=== PATIENT | female | born 1945 | race Asian ===

== ENCOUNTER 2018-01-10 11:51 | Outpatient (CLI) | payer MEDICARE, BC ==
[2018-01-10 12:31] LABS: BASOPHILS % (AUTO) 0.5 % (0-1); EOSINOPHILS # (AUTO) 0.2 X10'3 (0-0.9); EOSINOPHILS % (AUTO) 3.1 % (0-6); HEMATOCRIT 39.3 % (35.0-45.0); HEMOGLOBIN 13.6 g/dl (12.0-16.0); LYMPHOCYTES # (AUTO) 2.1 X10'3 (1.1-4.8); LYMPHOCYTES % (AUTO) 32.1 % (21-51); MEAN CORPUSCULAR HEMOGLOBIN 31.7 PG (27.0-31.0); MEAN CORPUSCULAR HGB CONC 34.7 % (33.0-36.5); MEAN CORPUSCULAR VOLUME 91.5 FL (78-98); MEAN PLATELET VOLUME 6.5 FL (7.4-10.4); MONOCYTES # (AUTO) 0.4 X10'3 (0-0.9); NEUTROPHILS # (AUTO) 3.8 X10'3 (1.8-7.7); NEUTROPHILS % (AUTO) 58.3 % (42-75); PLATELET COUNT 306 X10'3 (140-440); RED CELL DISTRIBUTION WIDTH 12.6 % (11.5-14.5); WHITE BLOOD COUNT 6.5 X10'3 (4.5-11.0)
[2018-01-10 12:34] LABS: ALBUMIN 3.8 G/DL (3.4-5.0); ANION GAP 8 (8-16); BLOOD UREA NITROGEN 21 MG/DL (7-18); BUN/CREATININE RATIO 23.1 (6.6-38.0); CHLORIDE 105 MMOL/L (99-107); CREATININE 0.91 MG/DL (0.40-0.90); GLUCOSE 101 MG/DL (70-104); PARTIAL THROMBOPLASTIN TIME 28 SECONDS (22-32); POTASSIUM 3.8 MMOL/L (3.5-5.1); PROTHROMBIN TIME 10.1 SECONDS (9.0-12.0); SODIUM 145 MMOL/L (135-145); TOTAL CARBON DIOXIDE 32.1 MMOL/L (24-32); eGFR 61 ML/MIN
== END 2018-01-10 23:59 | disposition home or self-care (01) ==
LOC: LAB 11:51 → EDSTATUS 01-15 18:30
PROVIDERS: ATTEND Internal Medicine Interventional Cardiology
DX: Z01.810 Encounter for preprocedural cardiovascular examination (principal); R07.2 Precordial pain; K21.9 Gastro-esophageal reflux disease without esophagitis
CPT/HCPCS: 36415; 80048; 85025; 85610; 85730

== ENCOUNTER 2018-02-07 13:45 | Day surgery (SDC) | payer MEDICARE, BC ==
[2018-02-02 12:11] LABS: BASOPHILS % (AUTO) 0.5 % (0-1); EOSINOPHILS # (AUTO) 0.2 X10'3 (0-0.9); EOSINOPHILS % (AUTO) 2.9 % (0-6); HEMATOCRIT 40.3 % (35.0-45.0); HEMOGLOBIN 13.9 g/dl (12.0-16.0); LYMPHOCYTES # (AUTO) 2.2 X10'3 (1.1-4.8); MEAN CORPUSCULAR HEMOGLOBIN 31.8 PG (27.0-31.0); MEAN CORPUSCULAR HGB CONC 34.4 % (33.0-36.5); MEAN CORPUSCULAR VOLUME 92.4 FL (78-98); MEAN PLATELET VOLUME 6.2 FL (7.4-10.4); MONOCYTES # (AUTO) 0.4 X10'3 (0-0.9); MONOCYTES % (AUTO) 5.6 % (2-12); NEUTROPHILS # (AUTO) 4.6 X10'3 (1.8-7.7); PLATELET COUNT 369 X10'3 (140-440); RED BLOOD COUNT 4.36 X10'6 (4.20-5.60); RED CELL DISTRIBUTION WIDTH 12.9 % (11.5-14.5); WHITE BLOOD COUNT 7.5 X10'3 (4.5-11.0)
[2018-02-02 12:20] LABS: ALBUMIN 3.9 G/DL (3.4-5.0); ANION GAP 4 (8-16); BLOOD UREA NITROGEN 20 MG/DL (7-18); BUN/CREATININE RATIO 20.2 (6.6-38.0); CALCIUM 9.4 MG/DL (8.5-10.1); CHLORIDE 103 MMOL/L (99-107); CREATININE 0.99 MG/DL (0.40-0.90); GLUCOSE 118 MG/DL (70-104); PARTIAL THROMBOPLASTIN TIME 28 SECONDS (22-32); POTASSIUM 3.8 MMOL/L (3.5-5.1); PROTHROMBIN TIME 9.9 SECONDS (9.0-12.0); SODIUM 141 MMOL/L (135-145); TOTAL CARBON DIOXIDE 33.8 MMOL/L (24-32); eGFR 55 ML/MIN
[~2018-02-07] VITALS: Ht 147.3 cm; Wt 50.4 kg
[2018-02-07] VITALS (8 sets, daily range): BP systolic 120–155; BP diastolic 64–97
[2018-02-07] MEDS ORDERED: MULT-955 PO (14:09)
[2018-02-07] MEDS ORDERED: HYDR25TA4 PO (14:09)
[2018-02-07] MEDS ORDERED: FAMO-128 PO (14:09)
[2018-02-07] MEDS ORDERED: normal saline 1000ml 1,000 ML IV SCH (14:10)
[2018-02-07] MEDS ORDERED: LIDOcaine/PRILOcaine 5gm cream TP ONE (14:10)
[2018-02-07] MEDS ORDERED: diphenhydrAMINE 25mg capsule PO PRN (14:10)
[2018-02-07] MEDS ORDERED: LORazepam 0.5 MG tablet PO PRN (14:10)
[2018-02-07] MEDS ORDERED: nitroGLYCERIN-Tridil 50MG/D5W 250 ML IV ONE (16:34)
[2018-02-07] MEDS ORDERED: verapamil 2.5 mg/ml inj IV ONE (16:34)
[2018-02-07] MEDS ORDERED: midazolam 2 mg/2 ml injection ONE (16:34)
[2018-02-07] MEDS ORDERED: fentaNYL/PF 50MCG/1 ML 2ML syringe ONE (16:35)
[2018-02-07] MEDS ORDERED: heparin 1,000unit/ml 10ml vial 10 ML ONE (16:35)
[2018-02-07] MEDS ORDERED: iohexol 350MG/ML 100ml bottle IV ONE (16:35)
[2018-02-07] MEDS ORDERED: LIDOcaine 1% 30ml preserv. free vial ONE (16:35)
[2018-02-07] MEDS ORDERED: OXAZEpam 15mg capsule PO PRN (17:45)
[2018-02-07] MEDS ORDERED: proCHLORperazine 10 MG/2 ml inj IV PRN (17:45)
[2018-02-07] MEDS ORDERED: ondansetron/PF 4mg/2ml inj IV PRN (17:45)
[2018-02-16] MEDS ORDERED: HYDR-4383 PO (07:07)
== END 2018-02-07 19:30 | disposition home or self-care (01) ==
LOC: SSTAY O 13:45
PROVIDERS: ATTEND Internal Medicine Interventional Cardiology
DX: I25.118 Atherosclerotic heart disease of native coronary artery with other forms of angina pectoris (principal); I10 Essential (primary) hypertension; E78.5 Hyperlipidemia, unspecified; K21.9 Gastro-esophageal reflux disease without esophagitis; M19.90 Unspecified osteoarthritis, unspecified site; E11.9 Type 2 diabetes mellitus without complications; I45.81 Long QT syndrome; Z79.01 Long term (current) use of anticoagulants; Z88.6 Allergy status to analgesic agent; Z91.018 Allergy to other foods; Z79.82 Long term (current) use of aspirin; Z79.891 Long term (current) use of opiate analgesic; Z90.710 Acquired absence of both cervix and uterus; Z79.899 Other long term (current) drug therapy; Z98.890 Other specified postprocedural states; Z88.8 Allergy status to other drugs, medicaments and biological substances
CPT/HCPCS: 36415; 80048; 85025; 85610; 85730; 93005; 93458; 99152; A6257; A6258; A6402; C1769; J1644; J2250; J3010; J3490; J7030; Q0163; Q9967; A4620

== ENCOUNTER 2018-02-12 05:30 | Inpatient (IN) | payer MEDICARE, BC ==
[2018-02-09 13:44] LABS: BASOPHILS % (AUTO) 0.4 % (0-1); EOSINOPHILS # (AUTO) 0.1 X10'3 (0-0.9); EOSINOPHILS % (AUTO) 1.7 % (0-6); LYMPHOCYTES # (AUTO) 1.9 X10'3 (1.1-4.8); LYMPHOCYTES % (AUTO) 23.7 % (21-51); MEAN CORPUSCULAR HEMOGLOBIN 31.8 PG (27.0-31.0); MEAN CORPUSCULAR HGB CONC 34.4 % (33.0-36.5); MEAN CORPUSCULAR VOLUME 92.4 FL (78-98); MEAN PLATELET VOLUME 6.8 FL (7.4-10.4); MONOCYTES # (AUTO) 0.4 X10'3 (0-0.9); MONOCYTES % (AUTO) 5.4 % (2-12); NEUTROPHILS # (AUTO) 5.7 X10'3 (1.8-7.7); NEUTROPHILS % (AUTO) 68.8 % (42-75); PRE OP HEMATOCRIT 40.6 % (35.0-45.0); PRE OP PLATELET COUNT 363 X10'3 (140-440)
[2018-02-09 13:56] LABS: HEMOGLOBIN A1C 6.1 % (4.5-6.2)
[2018-02-09 13:59] LABS: PRE OP PROTIME 10.2 SECONDS (9.0-12.0)
[2018-02-09 14:05] LABS: ALBUMIN 3.9 G/DL (3.4-5.0); ALBUMIN/GLOBULIN RATIO 0.8 (1.1-1.5); ALKALINE PHOSPHATASE 73 IU/L (46-116); BLOOD UREA NITROGEN 15 MG/DL (7-18); BUN/CREATININE RATIO 15.3 (6.6-38.0); CALCIUM 9.5 MG/DL (8.5-10.1); CHLORIDE 102 MMOL/L (99-107); CREATININE 0.98 MG/DL (0.40-0.90); PRE OP ALT 16 U/L (30-65); PRE OP ANION GAP 8 (8-16); PRE OP AST 17 U/L (10-37); PRE OP BILIRUB, TOTAL 0.4 MG/DL (0.0-1.0); PRE OP GLUCOSE 103 MG/DL (70-104); PRE OP POTASSIUM 3.6 MMOL/L (3.4-5.1); PRE OP SODIUM 143 MMOL/L (135-145); TOTAL CARBON DIOXIDE 33.4 MMOL/L (24-32); TOTAL PROTEIN 8.5 G/DL (6.4-8.2); eGFR 56 ML/MIN
[2018-02-09 14:21] LABS: CLARITY,URINE CLEAR (Clear); COLOR,URINE YELLOW (Yellow); GLUCOSE, URINE NEGATIVE (Neg); KETONES,URINE NEGATIVE (Neg); LEUKOCYTE ESTERASE ,URINE NEGATIVE (Neg); NITRITES, URINE NEGATIVE (Neg); OCCULT BLOOD,URINE MODERATE (Neg); PH,URINE 5.5 (4.8-8.0); PROTEIN,URINE NEGATIVE (Neg); UROBILINOGEN,URINE 0.2 E.U/dL (0.2-1.0)
[2018-02-09 14:23] LABS: UA COLLECTION TYPE NON-SPECIFIED
[2018-02-09 14:29] LABS: BACTERIA,URINE NONE SEEN /HPF (Neg); MUCUS STRANDS NONE SEEN /LPF (Neg); SQUAMOUS EPITHELIAL CELL,UR FEW /LPF (FEW)
[2018-02-09 14:30] LABS: WBC,URINE 0-4 /HPF (0-4)
[~2018-02-12] VITALS: Ht 167.6 cm; Wt 49.8 kg
[2018-02-12] VITALS (23 sets, daily range): BP systolic 96–145; BP diastolic 48–74
[~2018-02-12 05:30] MED LIST: Cefazolin 2GM/50ML dext iso,osmotic IVPB IV ONE; FAMO-128 PO; HYDR25TA4 PO; MULT-955 PO; VANCOMYCIN INJ 1000 MG in NORMAL SALINE 250ml IV.SOLN IV ONE; famotidine 20mg tablet PO ONE; ringers solution, lacted 1,000 ML IV SCH
[2018-02-12 05:45] LABS: ABG BASE EXCESS 3.6 mmol/L (-2.0-3.0); ABG HCO3 28.8 mmol/L (22.0-26.0); ABG PCO2 (T) 45.7 mmHg (32.0-45.0); ABG PH (T) 7.418 (7.350-7.450); ABG PO2 (T) 79.8 mmHg (83-108); ALLEN'S TEST Positive; FCOHb 0.6 % (0.5-1.5); FMetHb 0.1 % (0.3-1.12); FO2Hb 95.3 % (94-100); TOTAL HEMOGLOBIN 14.5 G/dl (12.0-16.0)
[2018-02-12] MEDS ORDERED: metoprolol tartrate 12.5mg (1/2 tablet) PO ONE (06:00)
[2018-02-12] MEDS: insulin regular, human 100 UNIT in normal saline 100ml IV soln 99 ML IV SCH ×2 (06:00)
[2018-02-12] MEDS ORDERED: mupirocin 2% nasal ointment 1gm UD NS ONE (06:00)
[2018-02-12] MEDS ORDERED: LORazepam 2 mg/ml vial IV ONE (06:00)
[2018-02-12] MEDS ORDERED: LIDOcaine 1% (10mg/ml) 2ml vial ONE (06:26)
[2018-02-12] MEDS ORDERED: papaverine 30 mg/ml 2ml inj. ONE (06:59)
[2018-02-12] MEDS ORDERED: nitroGLYCERIN in D5W 50mg/250ml (Tridil) infusion IV ONE (06:59)
[2018-02-12] MEDS ORDERED: heparin 10,000 units/1 ML INJ ONE ×2 (06:59→13:00)
[2018-02-12] MEDS ORDERED: DOPamine/D5W 400mg/250ml bag IV ONE (06:59)
[2018-02-12] MEDS ORDERED: isoflurane 100ml inhalation liquid IH ONE (06:59)
[2018-02-12] MEDS ORDERED: protamine sulf. 10mg/ml inj. IV ONE (06:59)
[2018-02-12] MEDS ORDERED: INSULIN R 100 UNIT in NS 100ML (1 UNIT/1 ML) BAG IV ONE (06:59)
[2018-02-12] MEDS ORDERED: MIDAZolam 1mg/ml 10ml vial ONE (07:02)
[2018-02-12] MEDS ORDERED: SUFENTANIL CITRATE 50 MCG/ML 2ml ampule IV ONE (07:02)
[2018-02-12 07:51] LABS: ABG BASE EXCESS 4.1 mmol/L (-2.0-3.0); ABG HCO3 25.8 mmol/L (22.0-26.0); ABG OXYGEN SATURATION 99.1 % (95-98); ABG PCO2 29.2 mmHg (35.0-45.0); ABG PH 7.564 (7.350-7.450); ABG PO2 258.3 mmHg (60.0-100.0); CL (ABG) 104 mmol/L (99-107); FMetHb 0.5 % (0.3-1.12); FO2Hb 98.6 % (94-100); GLUCOSE (ABG) 108 mg/dl (70-105); IONIZED CA (ABG) 1.08 mmol/L (1.03-1.32); NA (ABG) 137 mmol/L (135-145); TOTAL HEMOGLOBIN 11.4 G/dl (12.0-16.0)
[2018-02-12] MEDS ORDERED: heparin 10,000 units/1 ML INJ IR ONE (08:00)
[2018-02-12] MEDS ORDERED: papaverine 30 mg/ml 2ml inj. IA ONE (08:04)
[2018-02-12 08:36] LABS: ABG BASE EXCESS 2.1 mmol/L (-2.0-3.0); ABG HCO3 27.3 mmol/L (22.0-26.0); ABG OXYGEN SATURATION 81.1 % (95-98); ABG PCO2 44.8 mmHg (35.0-45.0); ABG PH 7.402 (7.350-7.450); CL (ABG) 101 mmol/L (99-107); FCOHb 0.3 % (0.5-1.5); FMetHb 0.8 % (0.3-1.12); FO2Hb 80.2 % (94-100); GLUCOSE (ABG) 175 mg/dl (70-105); IONIZED CA (ABG) 1.02 mmol/L (1.03-1.32); NA (ABG) 134 mmol/L (135-145)
[2018-02-12 09:01] LABS: ACT @ 1.70 U 280 SEC (193-297); ACT @ 2.84 U 386 SEC (260-420); BASELINE ACT 148 SEC (101-148); PATIENT WEIGHT 50.0k KG
[2018-02-12 09:01] LABS: ABG BASE EXCESS 2.5 mmol/L (-2.0-3.0); ABG HCO3 24.2 mmol/L (22.0-26.0); ABG PCO2 26.5 mmHg (35.0-45.0); ABG PH 7.579 (7.350-7.450); ABG PO2 374.1 mmHg (60.0-100.0); CL (ABG) 101 mmol/L (99-107); GLUCOSE (ABG) 153 mg/dl (70-105); IONIZED CA (ABG) 0.94 mmol/L (1.03-1.32); K (ABG) 4.6 mmol/L (3.3-5.1); NA (ABG) 135 mmol/L (135-145); TOTAL HEMOGLOBIN 7.9 G/dl (12.0-16.0)
[2018-02-12] MEDS ORDERED: LIDOcaine 2% (20mg/ml) 5ml vial ONE (09:01)
[2018-02-12] MEDS ORDERED: phenylephrine 10mg/ml inj. ONE ×2 (09:01→13:00)
[2018-02-12] MEDS ORDERED: rocuronium 10mg/ml inj IV ONE (09:01)
[2018-02-12] MEDS ORDERED: etomidate 2mg/ml inj. ONE (09:01)
[2018-02-12 09:05] LABS: ABG BASE EXCESS 1.9 mmol/L (-2.0-3.0); ABG HCO3 25.6 mmol/L (22.0-26.0); ABG PCO2 36.2 mmHg (35.0-45.0); ABG PH 7.468 (7.350-7.450); ABG PO2 367.8 mmHg (60.0-100.0); CL (ABG) 101 mmol/L (99-107); FCOHb 0.3 % (0.5-1.5); FMetHb 1.2 % (0.3-1.12); FO2Hb 97.5 % (94-100); GLUCOSE (ABG) 132 mg/dl (70-105); IONIZED CA (ABG) 0.99 mmol/L (1.03-1.32); K (ABG) 3.8 mmol/L (3.3-5.1); NA (ABG) 135 mmol/L (135-145); TOTAL HEMOGLOBIN 8.2 G/dl (12.0-16.0)
[2018-02-12] MEDS ORDERED: ipratropium/albuterol 3ml nebule IH PRN (09:05)
[2018-02-12 09:41] LABS: ABG BASE EXCESS 2.2 mmol/L (-2.0-3.0); ABG HCO3 27.1 mmol/L (22.0-26.0); ABG OXYGEN SATURATION 99.2 % (95-98); ABG PCO2 44.3 mmHg (35.0-45.0); ABG PH 7.405 (7.350-7.450); CL (ABG) 104 mmol/L (99-107); FCOHb 0.7 % (0.5-1.5); FMetHb 0.9 % (0.3-1.12); FO2Hb 97.6 % (94-100); GLUCOSE (ABG) 89 mg/dl (70-105); K (ABG) 3.7 mmol/L (3.3-5.1); NA (ABG) 136 mmol/L (135-145)
[2018-02-12] MEDS ORDERED: dextrose 50%-water 50ml dispensing syringe IV ONE (10:16)
[2018-02-12 10:20] LABS: ABG HCO3 VENOUS 28.7 mmol/L; ABG PO2 VENOUS 35.9 mmHg; CL (ABG) 105 mmol/L (99-107); FCOHb VENOUS 0.9 %; FHHb VENOUS 30.7 %; FMetHb VENOUS 1.1 %; FO2Hb VENOUS 67.3 %; GLUCOSE (ABG) 52 mg/dl (70-105); IONIZED CA (ABG) 1.15 mmol/L (1.03-1.32); K (ABG) 3.5 mmol/L (3.3-5.1); NA (ABG) 137 mmol/L (135-145); TOTAL HEMOGLOBIN 7.3 G/dl (12.0-16.0)
[2018-02-12] MEDS ORDERED: niCARDipine/sod cl 20mg/200ml 200 ML IV PRN (10:42)
[2018-02-12] MEDS ORDERED: albumin (Human) 5% 250ml 250 ML IV ONE (10:42)
[2018-02-12] MEDS: sodium chloride 0.45% 1,000 ML IV SCH (10:42)
[2018-02-12] MEDS ORDERED: nitroGLYCERIN-Tridil 50MG/D5W 250 ML IV PRN (10:42)
[2018-02-12] MEDS ORDERED: DOPamine 400mg/D5W 250ml 250 ML IV PRN (10:42)
[2018-02-12] MEDS ORDERED: morphine 4 MG/ML inj SYRINge ONE (10:43)
[2018-02-12] MEDS ORDERED: Neutra Phos packet PO PRN (10:45)
[2018-02-12] MEDS ORDERED: ondansetron/PF 4mg/2ml inj IV PRN (10:45)
[2018-02-12] MEDS ORDERED: morphine 4 MG/ML inj SYRINge IV PRN (10:45)
[2018-02-12] MEDS ORDERED: magnesium hydroxide 30ml (MOM) UD suspension PO PRN (10:45)
[2018-02-12] MEDS ORDERED: magnesium 4gm in 100ml NS 100 ML IV PRN (10:45)
[2018-02-12] MEDS ORDERED: normal saline 250ml IV soln 250 ML IV PRN (10:45)
[2018-02-12] MEDS ORDERED: potassium Cl 20mEq/100mL bag 100 ML IV PRN ×2 (10:45)
[2018-02-12] MEDS ORDERED: metoclopramide 5 mg/ml inj IV PRN (10:45)
[2018-02-12] MEDS ORDERED: acetaminophen 325mg tablet PO PRN (10:45)
[2018-02-12] MEDS ORDERED: HYDROcodone/acetaminophen 10/325mg tab PO PRN ×2 (10:45)
[2018-02-12] MEDS ORDERED: sodium phosphate inj. 30 MMOL in dextrose 5%-water 250 ML IV PRN (10:45)
[2018-02-12] MEDS ORDERED: sodium phosphate inj. 15 MMOL in dextrose 5%-water 150 ML IV PRN (10:45)
[2018-02-12] MEDS ORDERED: dextrose 50%-water 50ml dispensing syringe IV PRN (10:45)
[2018-02-12] MEDS ORDERED: insulin regular, human inj. 100 UNITS in normal saline 100ml IV soln 100 ML IV SCH ×2 (10:45)
[2018-02-12] MEDS ORDERED: magnesium 1gm/100ml D5W IVPB 100 ML IV PRN (10:45)
[2018-02-12 11:05] LABS: ABG BASE EXCESS 0.9 mmol/L (-2.0-3.0); ABG OXYGEN SATURATION 97.9 % (95-98); ABG PCO2 (T) 30.9 mmHg (32.0-45.0); ABG PH (T) 7.504 (7.350-7.450); ABG PO2 (T) 130.5 mmHg (83-108); FCOHb 0.1 % (0.5-1.5); FMetHb 0.3 % (0.3-1.12); FO2Hb 97.5 % (94-100); MINUTE VOLUME 5 L/min; PATIENT TEMPERATURE 35.6; PEEP 5 cm H2O; RESPIRATORY RATE 12 b/min; RESPIRATORY RATE (OBSERVED) 12 b/min; TIDAL VOLUME 400 mL
[2018-02-12 11:22] LABS: INR 1.3 INR; PARTIAL THROMBOPLASTIN TIME 33 SECONDS (22-32); PROTHROMBIN TIME 13.4 SECONDS (9.0-12.0)
[2018-02-12 11:26] LABS: ALANINE AMINOTRANSFERASE 19 U/L (12-78); ALBUMIN 2.9 G/DL (3.4-5.0); ALBUMIN/GLOBULIN RATIO 1.5 (1.1-1.5); ALKALINE PHOSPHATASE 32 IU/L (46-116); ANION GAP 10 (8-16); ASPARTATE AMINO TRANSFERASE 26 U/L (10-37); BILIRUBIN,TOTAL 0.6 MG/DL (0.1-1.0); BLOOD UREA NITROGEN 9 MG/DL (7-18); BUN/CREATININE RATIO 9.6 (6.6-38.0); CHLORIDE 111 MMOL/L (99-107); CREATININE 0.94 MG/DL (0.40-0.90); GLUCOSE 143 MG/DL (70-104); MAGNESIUM 2.9 MG/DL (1.5-2.4); PHOSPHORUS 1.4 MG/DL (2.3-4.5); POTASSIUM 3.3 MMOL/L (3.5-5.1); SODIUM 147 MMOL/L (135-145); TOTAL CARBON DIOXIDE 26.1 MMOL/L (24-32); TOTAL PROTEIN 4.9 G/DL (6.4-8.2); eGFR 59 ML/MIN
[2018-02-12 11:31] LABS: BASOPHILS % (AUTO) 0 % (0-1); EOSINOPHILS # (AUTO) 0.1 X10'3 (0-0.9); EOSINOPHILS % (AUTO) 0.6 % (0-6); HEMATOCRIT 27.1 % (35.0-45.0); HEMOGLOBIN 9.4 g/dl (12.0-16.0); LYMPHOCYTES # (AUTO) 0.9 X10'3 (1.1-4.8); LYMPHOCYTES % (AUTO) 6.8 % (21-51); MEAN CORPUSCULAR HEMOGLOBIN 31.9 PG (27.0-31.0); MEAN CORPUSCULAR HGB CONC 34.7 % (33.0-36.5); MEAN PLATELET VOLUME 6.6 FL (7.4-10.4); MONOCYTES # (AUTO) 0.6 X10'3 (0-0.9); MONOCYTES % (AUTO) 4.3 % (2-12); NEUTROPHILS # (AUTO) 12.3 X10'3 (1.8-7.7); NEUTROPHILS % (AUTO) 88.3 % (42-75); PLATELET COUNT 143 X10'3 (140-440); RED BLOOD COUNT 2.94 X10'6 (4.20-5.60); RED CELL DISTRIBUTION WIDTH 11.6 % (11.5-14.5); WHITE BLOOD COUNT 13.9 X10'3 (4.5-11.0)
[2018-02-12] MEDS: potassium Cl 20mEq/100mL bag 100 ML IV PRN (12:23)
[2018-02-12] MEDS ORDERED: heparin 1,000 units/ml 10ml inj ONE (13:00)
[2018-02-12] MEDS ORDERED: sodium bicarbonate (8.4%) 1 mEq/ml syringe ONE (13:00)
[2018-02-12] MEDS ORDERED: methylPREDNISolone sod succ 1000mg vial ONE (13:00)
[2018-02-12] MEDS ORDERED: aminocaproic acid 250 MG/1 ML inj. ONE (13:00)
[2018-02-12] MEDS ORDERED: calcium chloride 100 MG/1 ML inj IV ONE (13:00)
[2018-02-12] MEDS ORDERED: potassium Cl 2 mEq/ml inj IV ONE (13:00)
[2018-02-12] MEDS ORDERED: LIDOcaine 2% (20 mg/ml) 5ml cardiac syringe ONE (13:00)
[2018-02-12] MEDS ORDERED: albumin (human) 25% 100 ML IV solution IV ONE (13:00)
[2018-02-12] MEDS ORDERED: magnesium sulf 1 GM/2 ML ONE (13:00)
[2018-02-12] MEDS: insulin Lispro (HumaLOG) vial - multi-dose SQ SCH ×2 (13:00→18:00)
[2018-02-12] MEDS: albumin (Human) 5% 250ml 250 ML IV PRN ×2 (14:34→16:17)
[2018-02-12 14:35] LABS: ACTIVATED CLOTTING TIME 139 SEC (101-148)
[2018-02-12] MEDS: ceFAZolin 1GM/D5W- ADD-VANTAGE 50 ML IV SCH (15:27)
[2018-02-12 18:01] LABS: BASOPHILS % (AUTO) 0.1 % (0-1); EOSINOPHILS % (AUTO) 0 % (0-6); HEMATOCRIT 25.7 % (35.0-45.0); HEMOGLOBIN 8.8 g/dl (12.0-16.0); LYMPHOCYTES # (AUTO) 0.5 X10'3 (1.1-4.8); LYMPHOCYTES % (AUTO) 3.9 % (21-51); MEAN CORPUSCULAR HEMOGLOBIN 31.5 PG (27.0-31.0); MEAN CORPUSCULAR HGB CONC 34.2 % (33.0-36.5); MEAN CORPUSCULAR VOLUME 92.1 FL (78-98); MEAN PLATELET VOLUME 6.9 FL (7.4-10.4); MONOCYTES # (AUTO) 0.4 X10'3 (0-0.9); MONOCYTES % (AUTO) 3.2 % (2-12); NEUTROPHILS # (AUTO) 11.5 X10'3 (1.8-7.7); NEUTROPHILS % (AUTO) 92.8 % (42-75); PLATELET COUNT 142 X10'3 (140-440); RED BLOOD COUNT 2.79 X10'6 (4.20-5.60); RED CELL DISTRIBUTION WIDTH 12.5 % (11.5-14.5); WHITE BLOOD COUNT 12.4 X10'3 (4.5-11.0)
[2018-02-12 18:17] LABS: ALBUMIN 4.2 G/DL (3.4-5.0); ANION GAP 10 (8-16); BLOOD UREA NITROGEN 10 MG/DL (7-18); BUN/CREATININE RATIO 10.5 (6.6-38.0); CALCIUM 7.8 MG/DL (8.5-10.1); CHLORIDE 109 MMOL/L (99-107); CREATININE 0.95 MG/DL (0.40-0.90); GLUCOSE 197 MG/DL (70-104); PHOSPHORUS 4.9 MG/DL (2.3-4.5); POTASSIUM 4.7 MMOL/L (3.5-5.1); SODIUM 145 MMOL/L (135-145); eGFR 58 ML/MIN
[2018-02-12] MEDS: albumin (Human) 5% 250 ML IV solution IV STA ×2 (18:20→20:50)
[2018-02-12] MEDS: mupirocin 2% nasal ointment 1gm UD NS SCH (20:00)
[2018-02-12] MEDS: docusate sod 100mg capsule PO SCH (20:00)
[2018-02-12] MEDS: vancomycin/NS 1 GM ADD-VANTAGE 250 ML IV SCH (20:00)
[2018-02-12] MEDS: morphine 4 MG/ML inj SYRINge IV PRN (20:23)
[2018-02-13] VITALS (26 sets, daily range): BP systolic 79–146; BP diastolic 47–75
[2018-02-13 00:36] LABS: ABG HCO3 23.9 mmol/L (22.0-26.0); ABG OXYGEN SATURATION 95.2 % (95-98); ABG PCO2 (T) 41.5 mmHg (32.0-45.0); ALLEN'S TEST Positive; FCOHb 0.2 % (0.5-1.5); FMetHb 0.3 % (0.3-1.12); FO2Hb 94.7 % (94-100); MINUTE VOLUME 4 L/min; PATIENT TEMPERATURE 37.4; PEEP 5 cm H2O; RESPIRATORY RATE (OBSERVED) 16 b/min; TOTAL HEMOGLOBIN 9.7 G/dl (12.0-16.0)
[2018-02-13] MEDS ORDERED: ceFAZolin 1GM/D5W- ADD-VANTAGE 50 ML IV ONE (01:35)
[2018-02-13 04:09] LABS: BASOPHILS % (AUTO) 0 % (0-1); EOSINOPHILS % (AUTO) 0 % (0-6); HEMATOCRIT 25.3 % (35.0-45.0); HEMOGLOBIN 8.7 g/dl (12.0-16.0); LYMPHOCYTES # (AUTO) 0.8 X10'3 (1.1-4.8); MEAN CORPUSCULAR HEMOGLOBIN 31.6 PG (27.0-31.0); MEAN CORPUSCULAR HGB CONC 34.3 % (33.0-36.5); MEAN CORPUSCULAR VOLUME 92.1 FL (78-98); MEAN PLATELET VOLUME 6.6 FL (7.4-10.4); MONOCYTES # (AUTO) 0.8 X10'3 (0-0.9); MONOCYTES % (AUTO) 4.9 % (2-12); NEUTROPHILS # (AUTO) 14.5 X10'3 (1.8-7.7); NEUTROPHILS % (AUTO) 90.1 % (42-75); PLATELET COUNT 141 X10'3 (140-440); RED BLOOD COUNT 2.75 X10'6 (4.20-5.60); RED CELL DISTRIBUTION WIDTH 12.6 % (11.5-14.5); WHITE BLOOD COUNT 16.1 X10'3 (4.5-11.0)
[2018-02-13 04:47] LABS: ALANINE AMINOTRANSFERASE 18 U/L (12-78); ALBUMIN 4.3 G/DL (3.4-5.0); ALKALINE PHOSPHATASE 31 IU/L (46-116); ANION GAP 8 (8-16); ASPARTATE AMINO TRANSFERASE 28 U/L (10-37); BILIRUBIN,TOTAL 0.6 MG/DL (0.1-1.0); BLOOD UREA NITROGEN 10 MG/DL (7-18); CALCIUM 7.6 MG/DL (8.5-10.1); CHLORIDE 108 MMOL/L (99-107); CREATININE 0.91 MG/DL (0.40-0.90); GLUCOSE 97 MG/DL (70-104); MAGNESIUM 2.7 MG/DL (1.5-2.4); PHOSPHORUS 3.1 MG/DL (2.3-4.5); POTASSIUM 3.1 MMOL/L (3.5-5.1); SODIUM 144 MMOL/L (135-145); TOTAL CARBON DIOXIDE 28.1 MMOL/L (24-32); TOTAL PROTEIN 6.5 G/DL (6.4-8.2); eGFR 61 ML/MIN
[2018-02-13] MEDS: potassium Cl 20mEq/100mL bag 100 ML IV PRN (05:00)
[2018-02-13] MEDS: insulin regular, human 100 UNIT in normal saline 100ml IV soln 99 ML IV SCH ×2 (06:00)
[2018-02-13 06:48] LABS: ABG PO2 44.7 mmHg (60.0-100.0)
[2018-02-13 06:49] LABS: K (ABG) 2.9 mmol/L (3.3-5.1)
[2018-02-13] MEDS: morphine 4 MG/ML inj SYRINge IV PRN (07:28)
[2018-02-13] MEDS: atorvastatin 10mg tablet PO SCH (07:40)
[2018-02-13] MEDS: multivitamins, therapeutics tablet PO SCH (07:41)
[2018-02-13] MEDS: pantoprazole 40mg Tablet.DR PO SCH (07:41)
[2018-02-13] MEDS: docusate sod 100mg capsule PO SCH ×2 (07:41→20:09)
[2018-02-13] MEDS: ceFAZolin 1GM/D5W- ADD-VANTAGE 50 ML IV SCH ×4 (07:42→23:14)
[2018-02-13] MEDS: mupirocin 2% nasal ointment 1gm UD NS SCH ×2 (07:42→20:09)
[2018-02-13] MEDS: vancomycin/NS 1 GM ADD-VANTAGE 250 ML IV SCH ×2 (07:42→20:09)
[2018-02-13] MEDS ORDERED: albumin (Human) 5% 250 ML IV solution IV STA (07:49)
[2018-02-13] MEDS ORDERED: ketorolac trometh. 30mg/ml inj. IV PRN (07:50)
[2018-02-13] MEDS: metoprolol tartrate 12.5mg (1/2 tablet) PO SCH ×2 (08:00→20:08)
[2018-02-13] MEDS ORDERED: aspirin 325mg tablet, delayed-release (Ecotrin) PO SCH ×2 (08:00)
[2018-02-13] MEDS: insulin Lispro (HumaLOG) vial - multi-dose SQ SCH ×3 (09:00→18:00)
[2018-02-13] MEDS: sodium chloride 0.45% 1,000 ML IV SCH (15:47)
[2018-02-13 15:51] LABS: BASOPHILS % (AUTO) 0 % (0-1); EOSINOPHILS % (AUTO) 0 % (0-6); HEMATOCRIT 24.1 % (35.0-45.0); HEMOGLOBIN 8.3 g/dl (12.0-16.0); LYMPHOCYTES # (AUTO) 1.2 X10'3 (1.1-4.8); LYMPHOCYTES % (AUTO) 5.6 % (21-51); MEAN CORPUSCULAR HEMOGLOBIN 32.1 PG (27.0-31.0); MEAN CORPUSCULAR HGB CONC 34.3 % (33.0-36.5); MEAN CORPUSCULAR VOLUME 93.3 FL (78-98); MEAN PLATELET VOLUME 7.2 FL (7.4-10.4); MONOCYTES # (AUTO) 0.8 X10'3 (0-0.9); MONOCYTES % (AUTO) 3.9 % (2-12); NEUTROPHILS # (AUTO) 19.1 X10'3 (1.8-7.7); NEUTROPHILS % (AUTO) 90.5 % (42-75); PLATELET COUNT 126 X10'3 (140-440); RED BLOOD COUNT 2.59 X10'6 (4.20-5.60); WHITE BLOOD COUNT 21.1 X10'3 (4.5-11.0)
[2018-02-13 15:56] LABS: ANION GAP 9 (8-16); BLOOD UREA NITROGEN 19 MG/DL (7-18); BUN/CREATININE RATIO 18.3 (6.6-38.0); CALCIUM 7.1 MG/DL (8.5-10.1); CHLORIDE 108 MMOL/L (99-107); CREATININE 1.04 MG/DL (0.40-0.90); GLUCOSE 142 MG/DL (70-104); PHOSPHORUS 4.3 MG/DL (2.3-4.5); POTASSIUM 5.2 MMOL/L (3.5-5.1); SODIUM 141 MMOL/L (135-145); TOTAL CARBON DIOXIDE 24.3 MMOL/L (24-32); eGFR 52 ML/MIN
[2018-02-13] MEDS ORDERED: metoclopramide 5 mg/ml inj IV PRN (16:45)
[2018-02-13] MEDS ORDERED: clopidogrel 300mg tablet PO ONE (16:45)
[2018-02-14] VITALS (24 sets, daily range): BP systolic 13–147; BP diastolic 53–80
[2018-02-14 02:16] LABS: BASOPHILS % (AUTO) 0.1 % (0-1); EOSINOPHILS % (AUTO) 0 % (0-6); HEMATOCRIT 25.5 % (35.0-45.0); HEMOGLOBIN 8.6 g/dl (12.0-16.0); LYMPHOCYTES # (AUTO) 0.9 X10'3 (1.1-4.8); LYMPHOCYTES % (AUTO) 4.3 % (21-51); MEAN CORPUSCULAR HEMOGLOBIN 31.6 PG (27.0-31.0); MEAN CORPUSCULAR HGB CONC 33.9 % (33.0-36.5); MEAN CORPUSCULAR VOLUME 93.1 FL (78-98); MEAN PLATELET VOLUME 7.2 FL (7.4-10.4); MONOCYTES # (AUTO) 0.9 X10'3 (0-0.9); MONOCYTES % (AUTO) 4.3 % (2-12); NEUTROPHILS % (AUTO) 91.3 % (42-75); PLATELET COUNT 142 X10'3 (140-440); RED BLOOD COUNT 2.73 X10'6 (4.20-5.60); RED CELL DISTRIBUTION WIDTH 13.1 % (11.5-14.5); WHITE BLOOD COUNT 21.9 X10'3 (4.5-11.0)
[2018-02-14 02:32] LABS: ALBUMIN 3.8 G/DL (3.4-5.0); ANION GAP 8 (8-16); BLOOD UREA NITROGEN 25 MG/DL (7-18); BUN/CREATININE RATIO 24.3 (6.6-38.0); CALCIUM 7.6 MG/DL (8.5-10.1); CHLORIDE 106 MMOL/L (99-107); CREATININE 1.03 MG/DL (0.40-0.90); GLUCOSE 157 MG/DL (70-104); MAGNESIUM 2.5 MG/DL (1.5-2.4); PHOSPHORUS 3.5 MG/DL (2.3-4.5); POTASSIUM 4.5 MMOL/L (3.5-5.1); SODIUM 138 MMOL/L (135-145); TOTAL CARBON DIOXIDE 24.2 MMOL/L (24-32); eGFR 53 ML/MIN
[2018-02-14] MEDS: insulin regular, human 100 UNIT in normal saline 100ml IV soln 99 ML IV SCH ×2 (03:52)
[2018-02-14] MEDS ORDERED: clopidogrel 75mg tablet PO SCH (08:00)
[2018-02-14] MEDS: multivitamins, therapeutics tablet PO SCH (08:26)
[2018-02-14] MEDS: metoprolol tartrate 12.5mg (1/2 tablet) PO SCH ×2 (08:26→20:03)
[2018-02-14] MEDS: docusate sod 100mg capsule PO SCH ×2 (08:27→20:04)
[2018-02-14] MEDS: mupirocin 2% nasal ointment 1gm UD NS SCH (08:27)
[2018-02-14] MEDS: pantoprazole 40mg Tablet.DR PO SCH (08:27)
[2018-02-14] MEDS: atorvastatin 10mg tablet PO SCH (08:28)
[2018-02-14] MEDS: insulin Lispro (HumaLOG) vial - multi-dose SQ SCH ×3 (18:00→18:31)
[2018-02-15] VITALS (20 sets, daily range): BP systolic 86–159; BP diastolic 50–82
[2018-02-15] MEDS: insulin regular, human 100 UNIT in normal saline 100ml IV soln 99 ML IV SCH ×2 (05:39)
[2018-02-15] MEDS ORDERED: ticagrelor 90mg tablet PO ONE (07:25)
[2018-02-15] MEDS: pantoprazole 40mg Tablet.DR PO SCH (07:39)
[2018-02-15] MEDS: docusate sod 100mg capsule PO SCH ×2 (07:39→20:00)
[2018-02-15] MEDS: multivitamins, therapeutics tablet PO SCH (07:40)
[2018-02-15] MEDS: metoprolol tartrate 12.5mg (1/2 tablet) PO SCH ×2 (07:40→19:54)
[2018-02-15] MEDS: atorvastatin 10mg tablet PO SCH (07:40)
[2018-02-15] MEDS: insulin Lispro (HumaLOG) vial - multi-dose SQ SCH ×2 (09:00→13:00)
[2018-02-15 11:46] LABS: BASOPHILS # (AUTO) 0.1 X10'3 (0-0.2); BASOPHILS % (AUTO) 0.4 % (0-1); EOSINOPHILS % (AUTO) 0 % (0-6); HEMATOCRIT 27.9 % (35.0-45.0); HEMOGLOBIN 9.4 g/dl (12.0-16.0); LYMPHOCYTES # (AUTO) 1.3 X10'3 (1.1-4.8); LYMPHOCYTES % (AUTO) 7.1 % (21-51); MEAN CORPUSCULAR HEMOGLOBIN 31.5 PG (27.0-31.0); MEAN CORPUSCULAR HGB CONC 33.8 % (33.0-36.5); MEAN CORPUSCULAR VOLUME 93.1 FL (78-98); MEAN PLATELET VOLUME 7.1 FL (7.4-10.4); MONOCYTES # (AUTO) 1.1 X10'3 (0-0.9); MONOCYTES % (AUTO) 6.3 % (2-12); NEUTROPHILS # (AUTO) 15.6 X10'3 (1.8-7.7); NEUTROPHILS % (AUTO) 86.2 % (42-75); PLATELET COUNT 188 X10'3 (140-440); WHITE BLOOD COUNT 18.1 X10'3 (4.5-11.0)
[2018-02-15 12:00] LABS: ALBUMIN 3.5 G/DL (3.4-5.0); ANION GAP 7 (8-16); BLOOD UREA NITROGEN 30 MG/DL (7-18); BUN/CREATININE RATIO 35.3 (6.6-38.0); CALCIUM 7.9 MG/DL (8.5-10.1); CHLORIDE 106 MMOL/L (99-107); CREATININE 0.85 MG/DL (0.40-0.90); GLUCOSE 107 MG/DL (70-104); MAGNESIUM 2.4 MG/DL (1.5-2.4); PHOSPHORUS 2.2 MG/DL (2.3-4.5); POTASSIUM 4.1 MMOL/L (3.5-5.1); SODIUM 140 MMOL/L (135-145); TOTAL CARBON DIOXIDE 27.3 MMOL/L (24-32); eGFR 66 ML/MIN
[2018-02-15] MEDS ORDERED: potassium Cl 40MEQ/NS 500ml 500 ML IV PRN ×2 (15:50)
[2018-02-15] MEDS ORDERED: magnesium Cl slow-release 64mg tablet PO PRN (15:50)
[2018-02-15] MEDS ORDERED: magnesium 1gm/100ml D5W IVPB 100 ML IV PRN (15:50)
[2018-02-15] MEDS ORDERED: potassium Cl 20 mEq SR tablet PO PRN ×2 (15:50)
[2018-02-15] MEDS ORDERED: magnesium 4gm in 100ml NS 100 ML IV PRN (15:50)
[2018-02-15] MEDS: ticagrelor 90mg tablet PO SCH (19:54)
[2018-02-15] MEDS: potassium Cl 20 mEq SR tablet PO SCH (19:54)
[2018-02-15] MEDS: magnesium Cl slow-release 64mg tablet PO SCH (19:54)
[2018-02-16 06:22] LABS: BASOPHILS % (AUTO) 0.1 % (0-1); EOSINOPHILS # (AUTO) 0.1 X10'3 (0-0.9); EOSINOPHILS % (AUTO) 0.8 % (0-6); HEMATOCRIT 27.2 % (35.0-45.0); HEMOGLOBIN 9.3 g/dl (12.0-16.0); LYMPHOCYTES # (AUTO) 1.7 X10'3 (1.1-4.8); LYMPHOCYTES % (AUTO) 13.6 % (21-51); MEAN CORPUSCULAR HEMOGLOBIN 31.7 PG (27.0-31.0); MEAN CORPUSCULAR HGB CONC 34.1 % (33.0-36.5); MEAN CORPUSCULAR VOLUME 92.9 FL (78-98); MEAN PLATELET VOLUME 7.1 FL (7.4-10.4); MONOCYTES # (AUTO) 0.8 X10'3 (0-0.9); MONOCYTES % (AUTO) 6.3 % (2-12); NEUTROPHILS # (AUTO) 10.1 X10'3 (1.8-7.7); NEUTROPHILS % (AUTO) 79.2 % (42-75); PLATELET COUNT 237 X10'3 (140-440); RED BLOOD COUNT 2.93 X10'6 (4.20-5.60); RED CELL DISTRIBUTION WIDTH 13.1 % (11.5-14.5); WHITE BLOOD COUNT 12.8 X10'3 (4.5-11.0)
[2018-02-16 06:56] LABS: ALBUMIN 3.3 G/DL (3.4-5.0); BLOOD UREA NITROGEN 24 MG/DL (7-18); BUN/CREATININE RATIO 28.9 (6.6-38.0); CALCIUM 8.2 MG/DL (8.5-10.1); CHLORIDE 106 MMOL/L (99-107); CREATININE 0.83 MG/DL (0.40-0.90); GLUCOSE 107 MG/DL (70-104); MAGNESIUM 2.4 MG/DL (1.5-2.4); POTASSIUM 4.3 MMOL/L (3.5-5.1); TOTAL CARBON DIOXIDE 28.4 MMOL/L (24-32); eGFR 68 ML/MIN
[2018-02-16] MEDS ORDERED: HYDR-569 PO (07:07)
[2018-02-16] MEDS ORDERED: ATOR10TA PO (07:07)
[2018-02-16] MEDS ORDERED: METO25TA6 PO (07:07)
[2018-02-16] MEDS ORDERED: ASPI81TA52 PO (07:07)
[2018-02-16 07:18] LABS: ANION GAP 7 (8-16); SODIUM 141 MMOL/L (135-145)
[2018-02-16] MEDS: atorvastatin 10mg tablet PO SCH (07:42)
[2018-02-16] MEDS: magnesium Cl slow-release 64mg tablet PO SCH (07:42)
[2018-02-16] MEDS: potassium Cl 20 mEq SR tablet PO SCH (07:42)
[2018-02-16] MEDS: multivitamins, therapeutics tablet PO SCH (07:43)
[2018-02-16] MEDS: ticagrelor 90mg tablet PO SCH (07:43)
[2018-02-16] MEDS: metoprolol tartrate 12.5mg (1/2 tablet) PO SCH (07:43)
[2018-02-16] MEDS ORDERED: TICA90TA PO (07:44)
[2018-02-16] MEDS: docusate sod 100mg capsule PO SCH (07:44)
[2018-02-16] MEDS: pantoprazole 40mg Tablet.DR PO SCH (07:44)
[2018-02-16] MEDS ORDERED: K and/or MAG REPLACEMENT MC SCH (08:00)
== END 2018-02-16 10:26 | disposition home or self-care (01) | DRG 236 ==
LOC: PAS IN 05:30 → EDSTATUS 07:30 → ICU 2S 10:12 → PCU 3S 02-15 17:47
PROVIDERS: ADMIT Thoracic Surgery (Cardiothoracic Vascular Surgery); ATTEND Thoracic Surgery (Cardiothoracic Vascular Surgery)
PROC: 021109W Bypass Coronary Artery, Two Arteries from Aorta with Autologous Venous Tissue, Open Approach (ICD-10-PCS; 2018-02-12)
PROC: 06BQ4ZZ Excision of Left Saphenous Vein, Percutaneous Endoscopic Approach (ICD-10-PCS; 2018-02-12)
PROC: 5A1221Z Performance of Cardiac Output, Continuous (ICD-10-PCS; 2018-02-12)
PROC: B24BZZ4 Ultrasonography of Heart with Aorta, Transesophageal (ICD-10-PCS; 2018-02-12)
PROC: 02HV33Z Insertion of Infusion Device into Superior Vena Cava, Percutaneous Approach (ICD-10-PCS; 2018-02-12)
PROC: 02100Z9 Bypass Coronary Artery, One Artery from Left Internal Mammary, Open Approach (ICD-10-PCS; principal; 2018-02-12 06:50)
DX: I25.110 Atherosclerotic heart disease of native coronary artery with unstable angina pectoris (principal); D62 Acute posthemorrhagic anemia; I31.3 Pericardial effusion (noninflammatory); I10 Essential (primary) hypertension; E78.5 Hyperlipidemia, unspecified; K21.9 Gastro-esophageal reflux disease without esophagitis; E11.9 Type 2 diabetes mellitus without complications; M19.90 Unspecified osteoarthritis, unspecified site; M54.9 Dorsalgia, unspecified; Z90.710 Acquired absence of both cervix and uterus; Z88.6 Allergy status to analgesic agent; Z88.8 Allergy status to other drugs, medicaments and biological substances
CPT/HCPCS: 0232T; 93312; 93325; 36415; 36600; 71045; 71046; 80048; 80053; 80069; 81001; 82330; 82435; 82803; 82947; 82948; 83036; 83735; 84100; 84132; 84295; 85018; 85025; 85347; 85384; 85576; 85610; 85730; 86885; 86900; 86901; 86920; 87070; 93005; 93880; 93971; 94002; 94003; 94010; 94760; 97116; 97162; 97530; A6255; A6257; A6258; A6402; A6449; A7000; A7048; C1751; J0690; J1265; J1644; J1815; J1885; J2001; J2060; J2150; J2250; J2270; J2370; J2405; J2440; J2720; J2765; J2930; J3370; J3475; J3480; J3490; J7030; J7060; J7120; P9045; P9047